=== PATIENT | female | born 1995 | race Caucasian/White ===

== ENCOUNTER 2019-10-01 14:04 | Emergency (ER) | payer OTHER ==
[~2019-10-01] VITALS: Ht 162.6 cm; Wt 61.2 kg
[2019-10-01] MEDS ORDERED: [UNRECOGNIZED DRUG - REMARK] (15:31)
== END 2019-10-01 18:46 | disposition home or self-care (01) ==
LOC: ER 14:04
DX: S93.401A Sprain of unspecified ligament of right ankle, initial encounter (principal); X50.9XXA Other and unspecified overexertion or strenuous movements or postures, initial encounter; X50.0XXA Overexertion from strenuous movement or load, initial encounter; Y93.89 Activity, other specified; Y92.59 Other trade areas as the place of occurrence of the external cause; Y99.8 Other external cause status